=== PATIENT | female | born 1980 | race Hispanic/Latino ===

== ENCOUNTER 2018-06-12 14:48 | Emergency (ER) | payer BC ==
[2018-06-12 15:28] VITALS: BP 161/90; PULSE 60; RESP 18; TEMP 98.3; O2SAT 99
[2018-06-12 15:58] LABS: HCG,QUALITATIVE URINE NEGATIVE (NEGATIVE)
[2018-06-12 16:06] LABS: SQUAMOUS EPITHIAL 3 /hpf (0-5); URINE BACTERIA FEW (<OCC); URINE BILIRUBIN NEGATIVE (NEGATIVE); URINE BLOOD NEGATIVE (NEGATIVE); URINE CLARITY Clear (Clear); URINE COLOR Straw (YELLOW); URINE GLUCOSE (UA) NORMAL (Normal); URINE LEUKOCYTE ESTERASE 1+ Leu/uL (Negative); URINE PROTEIN NEGATIVE (NEGATIVE); URINE UROBILINOGEN NORMAL mg/dL (0.2-1.0)
--- NOTE | 2018-06-12 16:23 | C.PDOC ---
History Of Present Illness 37-year-old female, presents to the emergency department with complaints of suprapubic pain and urinary frequency ongoing for the past five days. Patient also notes associated vaginal spotting and pain in her lower back. Patient states she searched online and thought she may have ovarian cyst and promptly came to ED for evaluation. She does not know of any history of ovarian cyst or fibroid. She denies nausea,vomiting, fever, chills. Time Seen by Provider: 06/12/18 15:43 Chief Complaint (Nursing): Female Genitourinary History Per: Patient History/Exam Limitations: no limitations Onset/Duration Of Symptoms: Days Severity: Mild Quality Of Discomfort: Burning, "Pain" Associated Symptoms: Urinary Symptoms Past Medical History Reviewed: Historical Data, Nursing Documentation, Vital Signs Vital Signs: Last Vital Signs Temp 98.3 F 06/12/18 15:22 Pulse 60 06/12/18 15:22 Resp 18 06/12/18 15:22 BP 161/90 H 06/12/18 15:22 Pulse Ox 99 06/12/18 16:57 - Medical History PMH: Anxiety Family History: States: No Known Family Hx - Social History Hx Alcohol Use: Yes Hx Substance Use: No - Immunization History Hx Tetanus Toxoid Vaccination: Yes Hx Influenza Vaccination: No Hx Pneumococcal Vaccination: No Review Of Systems Constitutional: Negative for: Fever Gastrointestinal: Positive for: Abdominal Pain (suprapubic). Negative for: Nausea, Vomiting Genitourinary: Positive for: Frequency, Vaginal Discharge, Vaginal Bleeding. Negative for: Incontinence, Hematuria Musculoskeletal: Positive for: Back Pain Physical Exam - Physical Exam Appears: Non-toxic, No Acute Distress Skin: Normal Color, Warm, Dry, No Rash Head: Atraumatic, Normacephalic Eye(s): bilateral: Normal Inspection, PERRL, EOMI Nose: Normal Oral Mucosa: Moist Lips: Normal Appearing Neck: Normal ROM Cardiovascular: Rhythm Regular, No Murmur Respiratory: Normal Breath Sounds, No Accessory Muscle Use Gastrointestinal/Abdominal: Bowel Sounds, Soft, Tenderness (mild, suprapubic), No Mass, No Distention, No Guarding, No Rebound Back: Normal Inspection, No CVA Tenderness Extremity: Normal ROM, No Deformity, No Swelling Neurological/Psych: Oriented x3, Normal Speech ED Course And Treatment O2 Sat by Pulse Oximetry: 99 Pulse Ox Interpretation: Normal (RA) Medical Decision Making Medical Decision Making: Impression: suprapubic pain/pressure, urinary frequency Plan: * Urine Culture * UA Progress: UA shows LE and WBCs. Patient remained afebrile and in no distress. Abdomen soft with mild tenderness to suprapubic region, not unilateral and no CVA tenderness on exam. Patient treated for UTI with Bactrim. Disposition Counseled Patient/Family Regarding: Diagnosis, Need For Followup, Rx Given - Disposition Referrals: Dieudonne Vázquez MD [Medical Doctor] - Disposition: HOME/ ROUTINE Disposition Time: 16:23 Condition: STABLE Additional Instructions: Take antibiotic twice daily and be sure to finish taking all of antibiotic. Drink plenty of fluids. If urine culture was performed, call back for results in 2-3 days for results to confirm antibiotic is treating UTI well. Prescriptions: Fluconazole [Diflucan] 150 mg PO ONCE #1 tab Sulfamethoxazole/Trimethoprim [Bactrim DS 800 mg-160 mg] 1 tab PO BID #14 tab Instructions: Urinary Tract Infection, Adult (DC) Forms: [employer] ([place]) - POA Present On Arrival: None - Clinical Impression Clinical Impression: UTI (urinary tract infection) - Scribe Statement The provider has reviewed the documentation as recorded by the Scribe (Rocky Marr) All medical record entries made by the Scribe were at my direction and personally dictated by me. I have reviewed the chart and agree that the record accurately reflects my personal performance of the history, physical exam, medical decision making, and the department course for this patient. I have also personally directed, reviewed, and agree with the discharge instructions and disposition.
== END 2018-06-12 16:41 | disposition home or self-care (01) ==
LOC: C.ER 14:48
DX: N39.0 Urinary tract infection, site not specified (principal)